=== PATIENT | male | born 1955 | race Caucasian/White ===

== ENCOUNTER 2020-09-09 12:29 | Emergency (ER) | payer OTHER ==
[~2020-09-09 12:29] MED LIST: ASPIRIN EC81 MG PO; ATIVAN0.5 MG PO; CARAFATE1 GM PO; LIPITOR40 MG PO; LOPRESSOR25 MG PO; NITROQUIK SL0.4 MG SL; PLAVIX75 MG PO; PRINIVIL10 MG PO; ZESTRIL5 MG PO
== END 2020-09-09 14:56 | disposition home or self-care (01) ==
LOC: FER 12:29
DX: M25.512 Pain in left shoulder (principal); I25.10 Atherosclerotic heart disease of native coronary artery without angina pectoris; R20.2 Paresthesia of skin; I10 Essential (primary) hypertension; E78.5 Hyperlipidemia, unspecified; K21.9 Gastro-esophageal reflux disease without esophagitis; F41.9 Anxiety disorder, unspecified; Z87.891 Personal history of nicotine dependence; Z79.02 Long term (current) use of antithrombotics/antiplatelets; Z79.899 Other long term (current) drug therapy
CPT/HCPCS: 36415; 71045; 84484; 93005

== ENCOUNTER 2021-05-27 23:23 | Emergency (ER) | payer OTHER ==
[2021-05-28 00:13] LABS: HCT 40.8 % (42.0-52.0); HGB 13.5 g/dl (13.2-18.0); MCH 30.3 pg (25.0-31.0); MCHC 33.1 g/dL (32.0-36.0); MCV 91.7 fL (78.0-100.0); RBC 4.45 M/uL (4.70-6.00); RDW 12.9 % (11.5-14.0); WBC 5.9 K/uL (4.0-10.5)
[2021-05-28 00:14] LABS: BASOPHIL 0.7 % (0-2); EOSINOPHIL 2.7 % (0-7); LYMPHOCYTE 35.6 % (15-48); MONOCYTE 8.8 % (0-12); MPV 9.8 fL (6.0-9.5); NRBC 0; PLT 189 K/uL (150-400)
[2021-05-28 00:43] LABS: ALBUMIN 3.2 g/dL (3.4-5.0); BILIRUBIN - TOTAL 0.3 mg/dL (0.2-1.0); BUN/CREAT RATIO (CALC) 16.2 RATIO; CREATININE 1.05 mg/dL (0.67-1.17); POTASSIUM 4.1 mmol/L (3.5-5.1); TOTAL PROTEIN 6.2 g/dL (6.4-8.2)
== END 2021-05-28 03:41 | disposition home or self-care (01) ==
LOC: FER 23:23
PROVIDERS: Emergency Medicine
DX: R07.89 Other chest pain (principal); I10 Essential (primary) hypertension; I25.10 Atherosclerotic heart disease of native coronary artery without angina pectoris; Z79.02 Long term (current) use of antithrombotics/antiplatelets; Z79.82 Long term (current) use of aspirin; Z79.899 Other long term (current) drug therapy
CPT/HCPCS: 36415; 71045; 80053; 84484; 85025; 85730; 93005

== ENCOUNTER 2022-02-13 00:35 | Emergency (ER) | payer OTHER ==
[~2022-02-13 00:35] MED LIST changes: +CLONAZEPAM0.5 MG PO; +COQ-1030 MG PO; +CRESTOR40 MG PO; +DIOVAN160 MG PO; +ISOSORBIDE MONO60 MG PO; +UROXATRAL10 MG PO; +VITAMIN D325 MC2 PO
[2022-02-13 01:29] LABS: BASOPHIL 0.7 % (0-2); EOSINOPHIL 2.5 % (0-7); HCT 40.6 % (42.0-52.0); HGB 13.3 g/dl (13.2-18.0); LYMPHOCYTE 34.6 % (15-48); MCHC 32.8 g/dL (32.0-36.0); MCV 91.6 fL (78.0-100.0); MONOCYTE 11.2 % (0-12); MPV 10.3 fL (6.0-9.5); NEUTROPHIL 50.6 % (41-80); NRBC 0; PLT 179 K/uL (150-400); RBC 4.43 M/uL (4.70-6.00); RDW 13.4 % (11.5-14.0); WBC 5.6 K/uL (4.0-10.5)
[2022-02-13 01:43] LABS: ALBUMIN 3.2 g/dL (3.4-5.0); BILIRUBIN - TOTAL 0.3 mg/dL (0.2-1.0); CREATININE 1.2 mg/dL (0.67-1.17); GLOBULIN (CALCULATION) 3.3 g/dL; POTASSIUM 3.7 mmol/L (3.5-5.1); TOTAL PROTEIN 6.5 g/dL (6.4-8.2)
[2022-02-13 02:29] LABS: BILIRUBIN NEGATIVE (NEGATIVE); BLOOD TRACE-INTACT Ery/uL (NEGATIVE); CLARITY CLEAR (CLEAR); COLOR YELLOW (YELLOW); GLUCOSE (U) NORMAL (NORMAL); LEUKOCYTES NEGATIVE Leu/uL (NEGATIVE); NITRITE NEGATIVE (NEGATIVE); PROTEIN NEGATIVE (NEGATIVE); SPECIFIC GRAVITY >=1.030 (1.001-1.030); UROBILINOGEN 0.2 mg/dL (0.2-1.0)
[2022-02-13 02:37] LABS: SQUAMOUS EPITHELIAL CELLS RARE
== END 2022-02-13 03:54 | disposition home or self-care (01) ==
LOC: FER 00:35
PROVIDERS: Emergency Medicine
DX: K21.9 Gastro-esophageal reflux disease without esophagitis (principal); R07.89 Other chest pain; R06.02 Shortness of breath; I10 Essential (primary) hypertension; Z79.82 Long term (current) use of aspirin; Z79.899 Other long term (current) drug therapy; Z20.822 Contact with and (suspected) exposure to COVID-19
CPT/HCPCS: 36415; 80053; 81001; 83880; 84484; 85025; 85379; 93005; J7030; U0002